=== PATIENT | male | born 1955 | race Caucasian/White ===

== ENCOUNTER → 2016-09-08 | Outpatient (CLI) | payer OTHER ==
--- NOTE | 2016-09-09 10:13 | CARD ---
APPROVED REPORT INDICATION Precordial pain Reason : Patient complained of pain PROCEDURE The patient underwent an Exercise Stress Test using the Noe Protocol. Blood pressure, heart rate, a nd EKG were monitored. An Echocardiogram was performed by tax map technician in four stages in quad fashion. At peak stress four se lected images were obtained and placed side by side with resting images for comparison. STRESS ECHO FINDINGS The resting Echocardiogram showed normal left ventricular contractility with an estimated Ejection Fr action of about 55 %. Stress images were technically very difficult but there appeared to be no obvio us new wall motion abnormalities at peak stress. However, patient did not achieve maximal stress leve l. Test Type: Exercise Stress Nurse/Tech: Erika Carrion R.N. Test Indications: Chest pain Cardiac History and Allergies: SEE EMR Medications: SEE EMR Medical History: SEE EMR Resting ECG: SR with PAC's Resting Heart Rate: 78 bpm Resting Blood Pressure: 154/93mmHg Pretest Chest Pain: None Nurse/Tech Notes SR with pac's, S1S2, lungs CTA, denied chest pain or SOA. Denied dizziness. Consent: The procedure was explained to the patient in lay terms. Informed consent was witnessed. Jose eout was entered into Vouch. History and Stress Test performed by Erika Carrion R.N. Stress Symptoms SOA. Pt describes onset of "cramping pain" pointing to left of mid-clavicular line just below his lef t breast. POST EXERCISE Reason for Termination: Reached target heart rate Target HR: 131 Max HR: 133 bpm 83% of Maximum Predicted HR: 161 bpm Exercise duration: 7:19 min:sec, 3 Stage Exercise capacity: 10.1METs Max Blood Pressure: 192/90mmHg Blood Pressure response to exercise: Normal blood pressure response during stress. Heart Rate response to exercise: Normal Chest Pain: Yes. Describes uncomfortable "cramping" just below L breast. Arrhythmia: Yes. Multiple PAC's, couplets ST Change: Yes. Please see changes in multiple leads, beginning in Stage 3 of excercise and lasting t hrough the recovery phase. INTERPRETATION Stress EKG Conclusion: Baseline EKG showed sinus rhythm. Inferolateral ST depressions and T-wave inve rsions at peak stress concerning for ischemia. PVC is noted without any other significant arrhythmias . <Conclusion> Treadmill exercise stress echocardiogram was equivocal. Stress electrocardiogram showed evidence of ischemia. Stress ultrasound images technically difficult without any obvious wall motion abnormalities at subma ximal stress. Lissette baseline left ventricle systolic function with ejection fraction estimated at 55%. Recommend cardiac catheterization for definitive evaluation.
== END | disposition home or self-care (01) ==
LOC: ECHO 12:55
PROVIDERS: ATTEND Internal Medicine Cardiovascular Disease
DX: R07.2 Precordial pain (principal)
CPT/HCPCS: 93017; 93350

== ENCOUNTER 2016-09-19 06:38 | Outpatient (CLI) | payer OTHER ==
[2016-09-19] VITALS (18 sets, daily range): BP systolic 110–148; BP diastolic 66–89
[~2016-09-19] VITALS: Ht 180.3 cm; Wt 104.3 kg
[~2016-09-19 06:38] MED LIST: CEFAZOLIN 2GM PREMIX 50 ML IV ONE; FENTANYL PF 250 MCG/5 ML VIAL. ONE; MIDAZOLAM HCL/PF 5 MG/5 ML VIAL ONE
[2016-09-19 07:10] LABS: HEMATOCRIT 49.9 % (39.0-53.0); HEMOGLOBIN 16.3 g/dL (13.0-17.5); RED BLOOD COUNT 5.57 x10^6/uL (4.30-5.70); RED CELL DISTRIBUTION WIDTH 13.5 % (11.5-14.5); WHITE BLOOD COUNT 7.4 x10^3/uL (4.0-11.0)
[2016-09-19] MEDS ORDERED: IOHEXOL 300 MG/ML 100ML VIAL. ONE (07:16)
[2016-09-19] MEDS ORDERED: LIDOCAINE 2% 20 ML VIAL. ONE (07:16)
[2016-09-19 07:21] LABS: PROTHROMBIN TIME PATIENT 12.8 SEC (11.7-14.0)
[2016-09-19] MEDS ORDERED: [UNRECOGNIZED DRUG - OTHER] PO (07:21)
[2016-09-19] MEDS ORDERED: OMEG100021 PO (07:21)
[2016-09-19] MEDS ORDERED: LOSA25TA4 PO (07:21)
[2016-09-19] MEDS ORDERED: ACAI500C2 PO (07:21)
[2016-09-19 07:26] LABS: CALCIUM 9.5 mg/dL (8.5-10.1); CREATININE 0.8 mg/dL (0.7-1.3); GFR 98.9; POTASSIUM 4.1 mmol/L (3.5-5.1)
[2016-09-19] MEDS ORDERED: HEPARIN for IV BOLUS 10,000 UNIT/10 ML VIAL. ONE ×2 (08:09→16:01)
[2016-09-19] MEDS ORDERED: MIDAZOLAM HCL 2 MG/2 ML VIAL. ONE ×2 (08:09→08:25)
[2016-09-19] MEDS ORDERED: VERAPAMIL 5 MG/2 ML VIAL. ONE (08:09)
[2016-09-19] MEDS ORDERED: NITROGLYCERIN 200 MCG/2 ML SYRINGE FOR CATH/VASC LAB. ONE (08:09)
[2016-09-19] MEDS ORDERED: FENTANYL PF 100 MCG/2 ML VIAL. ONE (08:09)
[2016-09-19] MEDS ORDERED: NITROGLYCERIN 200 MCG/2 ML SYRINGE FOR CATH/VASC LAB. IART ONE (08:45)
[2016-09-19] MEDS ORDERED: MIDAZOLAM HCL 2 MG/2 ML VIAL. IV ONE (08:45)
[2016-09-19] MEDS ORDERED: IOHEXOL 300 MG/ML 100ML VIAL. IART ONE (08:45)
[2016-09-19] MEDS ORDERED: FENTANYL PF 100 MCG/2 ML VIAL. IV ONE (08:45)
[2016-09-19] MEDS ORDERED: LIDOCAINE 2% 20 ML VIAL. IJ ONE (08:45)
[2016-09-19] MEDS ORDERED: HEPARIN for IV BOLUS 10,000 UNIT/10 ML VIAL. IART ONE (08:45)
[2016-09-19] MEDS ORDERED: VERAPAMIL 5 MG/2 ML VIAL. IART ONE (08:45)
[2016-09-19] MEDS ORDERED: IV 1/2 NORMAL SALINE 1,000 ML IV SCH (09:40)
--- NOTE | 2016-09-19 09:42 | PDOC ---
MODERATE SEDATION ASSESSMENT RISKS/ALTERNATIVES Risks/Alternatives Risks and alternatives of this type of sedation and procedure discussed with: RISK/ALTERNATIVES: Patient H & P ON CHART H & P H & P on chart and reviewed for co-morbid conditions and appropriate labs. H&P ON CHART: Yes STATUS PREG STATUS ASSESSED: N/A MEDS/ALLERGIES REVIEWED Meds/Allergies Reviewed Medications and Allergies including time and route of recently administered narcotics and sedatives. MEDS/ALLERGIES REVIEWED: Yes ASA RATING ASA RATING: II AIRWAY ASSESSMENT Airway Assessment Airway patency, oral function limitations, presence of caps, crowns, dentures, partials, and ability to extend neck assessed. AIRWAY ASSESSMENT: Yes MALLAMPATI SCORE MALLAMPATI SCORE: II PRE-SEDATION ASSESSMENT PRE-SEDATION ASSESSMENT: Yes KATALINA LEDBETTER MD Sep 19, 2016 09:42
--- NOTE | 2016-09-19 12:58 | CARD ---
APPROVED REPORT Procedure(s) performed: Left heart catheterization, selective coronary angiography and left ventricul ography via the right transradial approach INDICATION The indication(s) include : unstable angina . PROCEDURE NARRATIVE After explaining the risks, benefits and alternative options, informed consent was obtained from katrina ent. Patient was brought to the cardiac Jewelry Finisher and right wrist was prepped and draped in the usual fashion after confirming a positive modified Sang's test. Arterial access was obtained in the righ t radial artery and a 6 [place] sheath was inserted. 6 [place] JL 3.5 and 6 [place] JR4 catheters were u sed to perform selective angiography of the left and right coronary arteries after initial attempts t o engage these vessels with 6 [place] Gustavo catheter was unsuccessful. 6 [place] pigtail catheter was used to perform left ventriculography. Patient tolerated the procedure well. Hemostasis was achiev ed using TR band. There were no immediate complications. The following findings were noted. FINDINGS 1. Hemodynamics: Left ventricular end-diastolic pressure of 18 mmHg. No pullback gradient across th e aortic valve. 2. Left ventriculography: Normal left ventricle systolic function with ejection fraction estimated at 60-65%. No significant mitral regurgitation seen. 3. Coronary angiography: a. The left main coronary artery arose from the left sinus of Valsalva, gave rise to the left anteri or descending and left circumflex arteries and did not show any significant stenosis. b. The left anterior descending artery showed 100% chronic total occlusion in the midsegment with di stal reconstitution from left to left collaterals. The diagonal branch showed 40% stenosis in the pro ximal segment. c. The left circumflex artery showed 100% chronic total occlusion in the midsegment. The second and third obtuse marginal branches fill via left to left collaterals. d. The right coronary artery was a large and dominant vessel arising from the right sinus of Valsalv a that showed a calcified 90-95% stenosis in the midsegment. Conclusion 1. Severe three-vessel coronary disease 2. Normal left ventricular systolic function with ejection fraction estimated at 60-65%. Recommendations Cardiothoracic surgery consultation for coronary artery bypass surgery. (Of note, patient is a Religious and does not want any blood products)
[2016-09-19] MEDS ORDERED: HEPARIN for IV BOLUS 10,000 UNIT/10 ML VIAL. IV ONE (15:45)
[2016-09-19] MEDS ORDERED: HEPARIN 25,000UTS/500ML PREMIX 500 ML IV PRN (15:45)
[2016-09-19] MEDS ORDERED: HEPARIN 25,000UTS/500ML PREMIX 500 ML IV ONE (16:01)
== END 2016-09-19 16:35 | disposition short-term general hospital (02) ==
LOC: CCL 06:38
PROVIDERS: ATTEND Internal Medicine Cardiovascular Disease
DX: I25.110 Atherosclerotic heart disease of native coronary artery with unstable angina pectoris (principal); I10 Essential (primary) hypertension; Z87.39 Personal history of other diseases of the musculoskeletal system and connective tissue; Z79.01 Long term (current) use of anticoagulants
CPT/HCPCS: 36415; 80048; 85027; 85610; 85730; 93458; C1769; C1892; J2250; J3010; J3490; Q9967

== ENCOUNTER 2016-12-10 11:30 | Emergency (ER) | payer OTHER ==
[~2016-12-10] VITALS: Ht 182.9 cm; Wt 100.2 kg
[~2016-12-10 11:30] MED LIST changes: -CEFAZOLIN 2GM PREMIX 50 ML IV ONE; -FENTANYL PF 250 MCG/5 ML VIAL. ONE; +LOSA25TA4 PO; -MIDAZOLAM HCL/PF 5 MG/5 ML VIAL ONE; +OMEG100021 PO; +[UNRECOGNIZED DRUG - CODE] PO; +[UNRECOGNIZED DRUG - OTHER] PO
[2016-12-10 11:34] VITALS: BP 159/85
[2016-12-10] MEDS ORDERED: fentaNYL PF VIAL 100 MCG/2 ML VIAL IV ONE (11:45)
[2016-12-10] MEDS ORDERED: IV NORMAL SALINE 1000ML BAG 1,000 ML IV ONE (11:45)
[2016-12-10] MEDS ORDERED: ONDANSETRON ODT 4 MG TAB.RAPDIS. PO ONE (11:45)
[2016-12-10] MEDS ORDERED: KETOROLAC TROMETHAMINE 30 MG/ML INJ. IV ONE (11:45)
--- NOTE | 2016-12-10 12:00 | PHYS DOC ---
Adult General Chief Complaint Chief Complaint: FLANK PAIN HPI HPI Patient is a 60 year old male presenting to the emergency department for evaluation of left flank pain that started around 6:00 this morning and radiates to his left lower abdomen currently and is causing him some nausea and difficulty urinating. He says that this is similar to when he had his kidney stone 4 years ago and he required stenting at that time. Patient says that he took some pain medication at home and feels somewhat better although he still uncomfortable. Patient is in no obvious distress with normal vital signs. Review of Systems Review of Systems Constitutional: Denies fever or chills [] Eyes: Denies change in visual acuity, redness, or eye pain [] HENT: Denies nasal congestion or sore throat [] Respiratory: Denies cough or shortness of breath [] Cardiovascular: No additional information not addressed in HPI [] GI: + abdominal pain, nausea. No vomiting, bloody stools or diarrhea [] : Denies dysuria or hematuria [] Musculoskeletal: + back pain. No joint pain [] Integument: Denies rash or skin lesions [] Neurologic: Denies headache, focal weakness or sensory changes [] Current Medications Current Medications Current Medications Medications (Trade) Dose Ordered Sig/Tiffanie Start Time Stop Time Status Last Admin Dose Admin Fentanyl Citrate (Fentanyl 2ml Vial) 75 mcg 1X ONCE 12/10/16 11:45 12/10/16 11:46 DC 12/10/16 12:14 75 MCG Ketorolac Tromethamine (Toradol) 30 mg 1X ONCE 12/10/16 11:45 12/10/16 11:46 DC 12/10/16 12:12 30 MG Ondansetron HCl (Zofran Odt) 8 mg 1X ONCE 12/10/16 11:45 12/10/16 11:46 DC 12/10/16 12:08 8 MG Sodium Chloride 1,000 ml @ 1,000 mls/hr 1X ONCE 12/10/16 11:45 12/10/16 12:44 DC 12/10/16 12:09 1,000 MLS/HR Allergies Allergies Allergies Coded Allergies Type Severity Reaction Last Updated Verified propoxyphene Allergy Severe 09/19/16 Yes oxycodone Allergy Intermediate Hives 09/19/16 Yes Physical Exam Physical Exam Constitutional: Well developed, well nourished, no acute distress, non-toxic appearance. [] HENT: Normocephalic, atraumatic, bilateral external ears normal, oropharynx moist, no oral exudates, nose normal. [] Eyes: PERRLA, EOMI, conjunctiva normal, no discharge. [] Neck: Normal range of motion, no tenderness, supple, no stridor. [] Cardiovascular:Heart rate regular rhythm, no murmur [] Lungs & Thorax: Bilateral breath sounds clear to auscultation [] Abdomen: Bowel sounds normal, soft, no tenderness, no masses, no pulsatile masses. [] Skin: Warm, dry, no erythema, no rash. [] Back: No tenderness. + L CVA tenderness. [] Extremities: No tenderness, no cyanosis, no clubbing, ROM intact, no edema. [] Neurologic: Alert and oriented X 3, normal motor function, normal sensory function, no focal deficits noted. [] Current Patient Data Vital Signs Vital Signs Date Time Temp Pulse Resp B/P (MAP) Pulse Ox O2 Delivery O2 Flow Rate FiO2 12/10/16 12:14 18 12/10/16 11:34 97.8 59 159/85 (109) 97 Room Air 97.8 Lab Values Laboratory Tests Test 12/10/16 11:57 White Blood Count 12.0 x10^3/uL (4.0-11.0) H Red Blood Count 5.31 x10^6/uL (4.30-5.70) Hemoglobin 15.2 g/dL (13.0-17.5) Hematocrit 47.1 % (39.0-53.0) Mean Corpuscular Volume 89 fL (79-100) Mean Corpuscular Hemoglobin 29 pg (25-35) Mean Corpuscular Hemoglobin Concent 32 g/dL (31-37) Red Cell Distribution Width 14.4 % (11.5-14.5) Platelet Count 211 x10^3/uL (140-400) Neutrophils (%) (Auto) 83 % (31-73) H Lymphocytes (%) (Auto) 11 % (24-48) L Monocytes (%) (Auto) 6 % (0-9) Eosinophils (%) (Auto) 0 % (0-3) Basophils (%) (Auto) 0 % (0-3) Neutrophils # (Auto) 10.0 x10^3uL (1.8-7.7) H Lymphocytes # (Auto) 1.3 x10^3/uL (1.0-4.8) Monocytes # (Auto) 0.8 x10^3/uL (0.0-1.1) Eosinophils # (Auto) 0.0 x10^3/uL (0.0-0.7) Basophils # (Auto) 0.0 x10^3/uL (0.0-0.2) Sodium Level 137 mmol/L (136-145) Potassium Level 4.1 mmol/L (3.5-5.1) Chloride Level 102 mmol/L (98-107) Carbon Dioxide Level 28 mmol/L (21-32) Anion Gap 7 (6-14) Blood Urea Nitrogen 19 mg/dL (8-26) Creatinine 0.9 mg/dL (0.7-1.3) Estimated GFR (Cockcroft-Gault) 86.4 BUN/Creatinine Ratio 21 (6-20) H Glucose Level 139 mg/dL (70-99) H Calcium Level 9.5 mg/dL (8.5-10.1) Total Bilirubin 1.0 mg/dL (0.2-1.0) Aspartate Amino Transferase (AST) 26 U/L (15-37) Alanine Aminotransferase (ALT) 49 U/L (16-63) Alkaline Phosphatase 70 U/L (46-116) Total Protein 7.6 g/dL (6.4-8.2) Albumin 4.0 g/dL (3.4-5.0) Albumin/Globulin Ratio 1.1 (1.0-1.7) Laboratory Tests 12/10/16 11:57 Laboratory Tests 12/10/16 11:57 EKG EKG [] Radiology/Procedures Radiology/Procedures Indication left flank pain. Axial images through the abdomen and pelvis were obtained. The examination was tailored for the detection of renal and/or ureteral calculi. No IV or gastrointestinal contrast was administered. Note is made of a similar exam 06/01/2012. The lung bases are clear. There is some coronary artery calcification There is adenopathy and/or soft tissue swelling in the left groin. An inflammatory process is not excluded. Targeted physical exam advised. The liver and spleen appear unremarkable. The gallbladder is grossly normal. No pancreatic abnormality is seen. There are no adrenal masses. There is a right renal mass likely reflecting a cyst. It appears somewhat larger than on the previous exam. It is not fully characterized on this noncontrast study. Nonemergent ultrasound could be performed for additional evaluation. There is a 2 to 3 mm left renal calculus. There is left hydronephrosis and hydroureter to the level of a 4 to 5 mm calculus impacted at the UVJ. No additional finding is seen in the abdomen or pelvis apart from a slightly enlarged prostate. IMPRESSION: 4 to 5 mm calculus impacted at the left UVJ with associated moderate obstructive uropathy. 2 to 3 mm left intrarenal calculus is additionally noted. Adenopathy and or inflammation in the left groin. Targeted physical exam advised. Mildly enlarged prostate. Probable right renal cyst PQRS Compliance Statement: One or more of the following individualized dose reduction techniques were utilized for this examination: 1. Automated exposure control 2. Adjustment of the mA and/or kV according to patient size 3. Use of iterative reconstruction technique DICTATED and SIGNED BY: ARNOLD WRIGHT MD DATE: 12/10/16 8339 Course & Med Decision Making Course & Med Decision Making Will treat for her kidney stone pain check CT labs urine and reassess. Patient has a stone that is likely to pass and he is feeling much better with no pain or nausea. Patient was agreeable to discharge so he'll be discharged with pain nausea and Flomax. Patient aware and agreeable with plan and verbalized understanding of the need for short-term urology follow-up and strict ER return precautions discussed worsening pain fevers vomiting or other general concerns. Dragon Disclaimer Dragon Disclaimer This electronic medical record was generated, in whole or in part, using a voice recognition dictation system. Departure Departure Impression: Primary Impression: Kidney stone Disposition: HOME, SELF-CARE Condition: GOOD Referrals: MALCOLM GARCIA DO Patient Instructions: Kidney Stones Additional Instructions: TAKE 400MG OF IBUPROFEN EVERY 6 HOURS AND THE PERCOCET FOR BREAKTHROUGH PAIN. DRINK PLENTY OF WATER AND FOLLOW WITH DR. GARCIA. COME BACK TO THE ED SOONER WITH ANY NEW OR WORSENING SYMPTOMS. THANK YOU! Scripts Tamsulosin Hcl (FLOMAX) 0.4 Mg Cap.er.24h 0.4 MG PO DAILY, #7 TAB Prov: JIGNA GALEANA DO 12/10/16 Ondansetron (ZOFRAN ODT) 4 Mg Tab.rapdis 4 MG PO BID Y for NAUSEA/VOMITING, #10 TAB Prov: JIGNA GALEANA DO 12/10/16 Oxycodone/Apap 5-325 (PERCOCET 5-325 MG TABLET) 1 Each Tablet 1 TAB PO PRN Q6HRS Y for PAIN, #20 TAB 0 Refills Prov: JIGNA GALEANA DO 12/10/16 JIGNA GALEANA DO Dec 10, 2016 12:00
[2016-12-10 12:03] LABS: BASO % 0 % (0-3); EOS % 0 % (0-3); HEMATOCRIT 47.1 % (39.0-53.0); HEMOGLOBIN 15.2 g/dL (13.0-17.5); LYMPH # 1.3 x10^3/uL (1.0-4.8); LYMPH % 11 % (24-48); MEAN CORPUSCULAR HEMOGLOBIN 29 pg (25-35); MEAN CORPUSCULAR HGB CONC 32 g/dL (31-37); MEAN CORPUSCULAR VOLUME 89 fL (79-100); MONO % 6 % (0-9); NEUT % 83 % (31-73); PLATELET COUNT 211 x10^3/uL (140-400); RED BLOOD COUNT 5.31 x10^6/uL (4.30-5.70); RED CELL DISTRIBUTION WIDTH 14.4 % (11.5-14.5)
[2016-12-10 12:14] LABS: CALCIUM 9.5 mg/dL (8.5-10.1); CREATININE 0.9 mg/dL (0.7-1.3); GFR 86.4; POTASSIUM 4.1 mmol/L (3.5-5.1)
[2016-12-10 12:20] LABS: ALBUMIN/GLOBULIN RATIO 1.1 (1.0-1.7); TOTAL PROTEIN 7.6 g/dL (6.4-8.2)
--- NOTE | 2016-12-10 12:56 | RAD ---
Indication left flank pain. Axial images through the abdomen and pelvis were obtained. The examination was tailored for the detection of renal and/or ureteral calculi. No IV or gastrointestinal contrast was administered. Note is made of a similar exam 06/01/2012. The lung bases are clear. There is some coronary artery calcification There is adenopathy and/or soft tissue swelling in the left groin. An inflammatory process is not excluded. Targeted physical exam advised. The liver and spleen appear unremarkable. The gallbladder is grossly normal. No pancreatic abnormality is seen. There are no adrenal masses. There is a right renal mass likely reflecting a cyst. It appears somewhat larger than on the previous exam. It is not fully characterized on this noncontrast study. Nonemergent ultrasound could be performed for additional evaluation. There is a 2 to 3 mm left renal calculus. There is left hydronephrosis and hydroureter to the level of a 4 to 5 mm calculus impacted at the UVJ. No additional finding is seen in the abdomen or pelvis apart from a slightly enlarged prostate. IMPRESSION: 4 to 5 mm calculus impacted at the left UVJ with associated moderate obstructive uropathy. 2 to 3 mm left intrarenal calculus is additionally noted. Adenopathy and or inflammation in the left groin. Targeted physical exam advised. Mildly enlarged prostate. Probable right renal cyst PQRS Compliance Statement: One or more of the following individualized dose reduction techniques were utilized for this examination: 1. Automated exposure control 2. Adjustment of the mA and/or kV according to patient size 3. Use of iterative reconstruction technique
[2016-12-10] MEDS ORDERED: ONDA4TAB10 PO (13:16)
[2016-12-10] MEDS ORDERED: TAMS0.4C97 PO (13:16)
[2016-12-10] MEDS ORDERED: OXYC-323 PO (13:16)
[2016-12-10 13:52] LABS: BILIRUBIN,URINE NEGATIVE (NEG); GLUCOSE,URINE NEGATIVE (NEG); NITRITE,URINE NEGATIVE (NEG); PH,URINE 5.5; PROTEIN,URINE NEGATIVE (NEG-TRACE); UROBILINOGEN,URINE 0.2 mg/dL (0.2 mg/dL)
[2016-12-10 14:06] LABS: BACTERIA,URINE 0 /HPF (0-FEW); RBC,URINE >40 /HPF (0-2); WBC,URINE 0 /HPF (0-4)
== END 2016-12-10 14:47 | disposition home or self-care (01) ==
LOC: ER 11:30
DX: N20.0 Calculus of kidney (principal); Z88.8 Allergy status to other drugs, medicaments and biological substances; Z88.5 Allergy status to narcotic agent
CPT/HCPCS: 36415; 74176; 80053; 81001; 85027; 96361; 96374; 96375; 99285; J1885; J3010; J7030; Q0162

== ENCOUNTER → 2019-03-29 | Outpatient (CLI) | payer OTHER ==
[~2019-03-29] MED LIST changes: +ASPI325T8 PO; +ATOR40TA PO; -LOSA25TA4 PO; +LOSA25TA54 PO; +METO50TA4 PO; +ONDA4TAB10 PO; +OXYC1TAB15 PO; +TAMS0.4C97 PO
--- NOTE | 2019-03-29 13:54 | CARD ---
MR#: [id number] Date of Study: 03/29/2019 Ordering Physician: KATALINA LEDBETTER, Referring Physician: KATALINA LEDBETTER Tech: Rosmery Reynoso RDCS APPROVED REPORT EXAM: Two-dimensional and M-mode echocardiogram with Doppler and color Doppler. Other Information Quality : AverageHR: 63bpm Rhythm : NSR INDICATION CAD Surgery/Intervention CABG: Date: 2016 2D DIMENSIONS RVDd3.4 (2.9-3.5cm)Left Atrium(2D)4.4 (1.6-4.0cm) IVSd1.3 (0.7-1.1cm)Aortic Root(2D)3.6 (2.0-3.7cm) LVDd5.2 (3.9-5.9cm)LVOT Diameter2.4 (1.8-2.4cm) PWd1.3 (0.7-1.1cm)LVDs4.0 (2.5-4.0cm) FS (%) 22.3 %SV56.8 ml LVEF(%)45.0 (>50%) M-Mode DIMENSIONS Left Atrium(MM)4.79 (2.5-4.0cm)Aortic Root3.28 (2.2-3.7cm) Aortic Valve AoV Peak Hong.96.5cm/sAoV VTI20.3cm AO Peak GR.3.7mmHgLVOT Peak Hong.76.8cm/s AO Mean GR.2mmHgAVA (VMAX)3.72cm2 GET (VTI)3.50cm2 Mitral Valve MV E Ceuojkaq95.3cm/sMV DECEL [id number] MV A Nhlbmkkb18.4cm/sE/A Ratio1.4 Pulmonary Valve PV Peak Ljmqncfb702.6cm/s Tricuspid Valve TR P. Lucxljvz989ed/sRAP BIDJREBA5suVy TR Peak Gr.35vxAaZJSH62buEi Pulmonary Vein S1 Zsikkmox78.4cm/sD2 Bynsmzve16.7cm/s PVa kdcwwgnd78qudv LEFT VENTRICLE The left ventricle is normal size. There is mild concentric left ventricular hypertrophy. Left ventri asia systolic function is low normal. The Ejection Fraction is 50-55%. Septal motion suggestive of pos t-operative state. Transmitral Doppler flow pattern is Grade II-pseudonormal filling dynamics. RIGHT VENTRICLE The right ventricle is normal size. There is normal right ventricular wall thickness. The right ventr icular systolic function is normal. ATRIA The left atrium is mildly dilated. The right atrium size is normal. The interatrial septum is intact with no evidence for an atrial septal defect or patent foramen ovale as noted on 2-D or Doppler imagi ng. AORTIC VALVE The aortic valve is normal in structure and function. The aortic valve is trileaflet. Doppler and Col or Flow revealed no significant aortic regurgitation. There is no significant aortic valvular stenosi s. There is no aortic valvular vegetation. MITRAL VALVE The mitral valve is normal in structure and function. There is no evidence of mitral valve prolapse. There is no mitral valve stenosis. Doppler and Color-flow revealed mild mitral regurgitation. TRICUSPID VALVE The tricuspid valve is normal in structure and function. Doppler and Color Flow revealed trace tricus pid regurgitation. The PA pressure was estimated at 32 mmHg. There is no tricuspid valve prolapse or vegetation. There is no tricuspid valve stenosis. PULMONIC VALVE The pulmonic valve is not well visualized. GREAT VESSELS The aortic root is normal in size. The ascending aorta is normal in size. The IVC is normal in size a nd collapses >50% with inspiration. PERICARDIAL EFFUSION There is no evidence of significant pericardial effusion. Critical Notification Critical Value: No <Conclusion> Left ventricle systolic function is low normal. The Ejection Fraction is 50-55%. Septal motion suggestive of post-operative state. Signed by : Kenyon Bautista, Electronically Approved : 03/29/2019 10:59:20
--- NOTE | 2019-03-29 14:52 | RAD ---
MR#: [id number] Date of Study: 03/29/2019 Ordering Physician: KATALINA LEDBETTER, Referring Physician: KATALINA LEDBETTER Tech: Daphne Griffiths RVT,ERI APPROVED REPORT Patient Location: OUT-PATIENT Indications Claudication: Risk Factors Cardiac Disease VELOCITY AND DOPPLER WAVEFORM ANALYSIS RIGHT cm/secWaveformSeverity LEFT cm/secWaveform Severity pCFA 142.5TriphasicpCFA 115.7Triphasic Prof Fem Art. 39.8BiphasicProf Fem Art. 50.9Biphasic Fem Art Prox. 104.8TriphasicFem Art Prox. 102.7Triphasic Fem Art Mid. 99.1TriphasicFem Art Mid. 108.5Triphasic Fem Art Dist. 72.3TriphasicFem Art Dist. 60.2Triphasic Pop Art(Fossa) 48.1TriphasicPop Art(AK) 52.6Triphasic PIT AND AUXILIARIES SUPERVISOR Prox. 68.0TriphasicPTA Prox. 95.8Triphasic PIT AND AUXILIARIES SUPERVISOR Dist. 82.6TriphasicPTA Dist. 85.5Triphasic Per Art Dist.37.2TriphasicPer Art Dist.47.9Triphasic SHAW Dist. 32.1BiphasicATA Dist. 75.7Biphasic DPA 17BiphasicDPA 39Triphasic Findings Grayscale images demonstrate mostly triphasic and biphasic waveforms throughout the bilateral lower e xtremity arteries. There is likely small vessel disease at the level of the ankle but no focal high-g rade stenosis is at the modified. There is mild diffuse calcific plaque noted on gallardo scale images. Critical Notification Critical Value: No <Conclusion> 1. No significant lower ext arterial disease with three-vessel runoff below the knee. 2. Probable small vessel disease at the level of the ankle. Signed by : Kenyon Bautista, Electronically Approved : 03/29/2019 14:52:06
== END | disposition home or self-care (01) ==
LOC: US 07:49
PROVIDERS: ATTEND Internal Medicine Cardiovascular Disease
DX: I34.0 Nonrheumatic mitral (valve) insufficiency (principal); I25.810 Atherosclerosis of coronary artery bypass graft(s) without angina pectoris; M79.605 Pain in left leg; M79.604 Pain in right leg; Z95.1 Presence of aortocoronary bypass graft
CPT/HCPCS: 93306; 93925

== ENCOUNTER → 2019-04-02 | Outpatient (CLI) | payer OTHER ==
[~2019-04-02] MED LIST changes: -ASPI325T8 PO; -ATOR40TA PO; -METO50TA4 PO
[2019-04-02 08:41] LABS: BASO % 0 % (0-3); EOS # 0.1 x10^3/uL (0.0-0.7); EOS % 2 % (0-3); HEMATOCRIT 48.9 % (39.0-53.0); HEMOGLOBIN 16.4 g/dL (13.0-17.5); LYMPH # 1.5 x10^3/uL (1.0-4.8); LYMPH % 27 % (24-48); MEAN CORPUSCULAR HEMOGLOBIN 30 pg (25-35); MEAN CORPUSCULAR HGB CONC 34 g/dL (31-37); MEAN CORPUSCULAR VOLUME 90 fL (79-100); MONO # 0.5 x10^3/uL (0.0-1.1); MONO % 9 % (0-9); NEUT # 3.4 x10^3/uL (1.8-7.7); NEUT % 61 % (31-73); PLATELET COUNT 175 x10^3/uL (140-400); RED BLOOD COUNT 5.43 x10^6/uL (4.30-5.70); RED CELL DISTRIBUTION WIDTH 14.3 % (11.5-14.5); WHITE BLOOD COUNT 5.6 x10^3/uL (4.0-11.0)
[2019-04-02 09:05] LABS: ALBUMIN 3.9 g/dL (3.4-5.0); ALBUMIN/GLOBULIN RATIO 1.1 (1.0-1.7); CALCIUM 9.7 mg/dL (8.5-10.1); CREATININE 0.9 mg/dL (0.7-1.3); GFR 85.5; POTASSIUM 4.3 mmol/L (3.5-5.1); TOTAL BILIRUBIN 1.4 mg/dL (0.2-1.0); TOTAL PROTEIN 7.4 g/dL (6.4-8.2)
[2019-04-02 09:07] LABS: CHOLESTEROL/HDL RATIO 3.9
[2019-04-03 00:07] LABS: HEMOGLOBIN A1C 5.8 % (4.8-5.6)
== END | disposition home or self-care (01) ==
LOC: LAB 08:18
PROVIDERS: ATTEND Family Medicine
DX: Z00.00 Encounter for general adult medical examination without abnormal findings (principal); I25.10 Atherosclerotic heart disease of native coronary artery without angina pectoris; N50.0 Atrophy of testis
CPT/HCPCS: 80053; 80061; 82306; 83036; 84402; 84403; 84443; 85025; G0103

== ENCOUNTER → 2019-05-17 | Day surgery (SDC) | payer OTHER ==
[~2019-05-17] MED LIST changes: +ASPI325T8 PO; +ATOR40TA PO; +IV RINGERS,LACTATED 1000ML 1,000 ML IV SCH; +LIDOCAINE 2% PF 5 ML VIAL. ONE; +METO50TA4 PO; +ONDANSETRON PF 4 MG/2 ML VIAL. IV PRN; +PROCHLORPERAZINE 10 MG/2 ML VIAL. IV PRN; +PROPOFOL 40 ML IV ONE; +fentaNYL PF VIAL 100 MCG/2 ML VIAL IV PRN
[2019-05-17 09:02] VITALS: BP 135/80
--- NOTE | 2019-05-20 14:07 | PATHOLOGY ---
[facility] Accession Number: [id number] . 01 Material submitted: . rectum - RECTAL POLYP . 01 Clinical history: . CRCS . 02 Diagnosis: Colorectal biopsy, rectal polyp: - Hyperplastic polyp. (JPM:[facility] 05/20/2019) [facility] 05/20/2019 0939 Local . 02 Comment: There are no adenomatous changes or evidence of malignancy. (JPM:[facility] 05/20/2019) . 02 Electronically signed: . Mario Higgins MD, Pathologist NPI- [id number] . 01 Gross description: . Received in formalin labeled "Julián Arthur, rectal polyp BX," is a single segment of rutledge soft tissue measuring 0.4 cm in maximum dimension. The specimen is entirely submitted in cassette A1. (TSD; 05/17/2019) TOB/TOB 05/17/2019 1657 Local . 02 Pathologist provided ICD-10: K62.1 . 02 CPT . 369469 Specimen Comment: A courtesy copy of this report has been sent to [phone], [phone] Specimen Comment: [id number] Specimen Comment: Report sent to / DR BOLANOS Performed at: 01 [facility] [address], [place] [id number] MD Kvng Sol MD Phone: [phone] Performed at: 02 [facility] [address] [place], [place] [id number] MD Mario Higgins MD Phone: [phone]
== END ==
LOC: ENDOS 06:59
PROVIDERS: ATTEND Internal Medicine Gastroenterology
DX: Z12.11 Encounter for screening for malignant neoplasm of colon (principal); K62.1 Rectal polyp; K64.0 First degree hemorrhoids; I10 Essential (primary) hypertension; I25.10 Atherosclerotic heart disease of native coronary artery without angina pectoris; F41.9 Anxiety disorder, unspecified; F32.9 Major depressive disorder, single episode, unspecified; E66.9 Obesity, unspecified; Z68.30 Body mass index [BMI] 30.0-30.9, adult; Z88.6 Allergy status to analgesic agent; Z88.8 Allergy status to other drugs, medicaments and biological substances; Z72.89 Other problems related to lifestyle; Z79.82 Long term (current) use of aspirin; Z98.890 Other specified postprocedural states; Z95.1 Presence of aortocoronary bypass graft; Z87.442 Personal history of urinary calculi; Z87.39 Personal history of other diseases of the musculoskeletal system and connective tissue
CPT/HCPCS: 45380; 88305; J2001; J2704

== ENCOUNTER → 2020-05-25 | Outpatient (CLI) | payer OTHER ==
[2019-05-17 09:02] VITALS: BP 135/80
[~2020-05-25] MED LIST changes: -IV RINGERS,LACTATED 1000ML 1,000 ML IV SCH; -LIDOCAINE 2% PF 5 ML VIAL. ONE; -ONDANSETRON PF 4 MG/2 ML VIAL. IV PRN; -PROCHLORPERAZINE 10 MG/2 ML VIAL. IV PRN; -PROPOFOL 40 ML IV ONE; +REGADENOSON 0.4 MG/5 ML DISP.SYRIN. IV ONE; -fentaNYL PF VIAL 100 MCG/2 ML VIAL IV PRN
--- NOTE | 2020-05-25 17:22 | RAD ---
MR#: [id number] Date of Study: 05/25/2020 Ordering Physician: KATALINA LEDBETTER, Referring Physician: ASHLEIGH HERNANDEZ Tech: RT Antonette (R) (N) APPROVED REPORT Test Type: Pharmacological Stress Nurse/Tech: Jean Claude Duggan RN Test Indications: CAD, chest pain Cardiac History: CABG 2017, HTN Medications: Zocor Medical History: See Electronic Medical Record Resting ECG: SR Resting Heart Rate: 58 bpm Resting Blood Pressure: 129/79mmHg Pretest Chest Pain: None Nurse/Tech Notes Lungs CTA, S1S2 Consent: The procedure was explained to the patient in lay terms. Informed consent was witnessed. Jose eout was entered into [employer]. History and Stress Test performed by GILBERTO Rivas Pharm. Details Pharmacologic stress testing was performed using 0.4mg per 5ml of regadenoson given intravenously ove r 7-10 seconds. Stress Symptoms No chest pain or symptoms. POST EXERCISE Reason for Termination: Infusion complete Max HR: 82 bpm Max Blood Pressure: 142/84mmHg Blood Pressure response to exercise: Normal blood pressure response during stress. Heart Rate response to exercise: Normal response Chest Pain: No. Arrhythmia: No. ST Change: No. INTERPRETATION Stress EKG Conclusion: The resting EKG shows a sinus rhythm. The stress EKG shows no significant changes from baseline. No EKG evidence of stress-induced ischemia. Imaging Protocol IMAGE PROTOCOL: Rest Tc-99m/stress Tc-99m 1 day Rest: Stress: Viability: Radiopharm.Tc99m FkwehsuqrTr30r Sestamibi Dose10.5mCi 30mCi Duration 13min. 13min. Img Date 05/25/2020 05/25/2020 Inj-Img Yvsl01kdz. 60min. Rest Admin Site:IV - Right AntecubitalAdministrator:RT Antonette (R)(N) Stress Admin Site: IV - Right AntecubitalAdministrator: GILBERTO Rivas STRESS DATA End Diast. Vol.131.0mlLVEDV index BSA58.0ml End Syst. Vol.44.0mlLVESV index BSA19.0ml Myocardial Rlyr995.0gEject. Qpfqesag54.0% Stress Scores Regional WT0.00Summed WT1.00 Regional WM0.00Summed WM5.00 LV Perfusion The stress scans show a mild inferior septal defect. The rest scans showed no significant defects. Nuclear imaging shows a mild area of reversible ischemia in the inferior septal region. Wall Motion Left ventricular systolic function is normal with an ejection fraction of 67%. LV Perf. Quant 17 Seg. SSS11.00 17 Seg. SRS0.00 17 Seg. SDS11.00 Stress Defect Extent (% LAD)23.80Rest Defect Extent (% LAD)0.00Rev. Defect Extent (% LAD)21.90 Stress Defect Extent (% LCX) 0.00Rest Defect Extent (% LCX)0.00Rev. Defect Extent (% LCX)0.00 Stress Defect Extent (% RCA)18.90Rest Defect Extent (% RCA)0.00Rev. Defect Extent (% RCA)18.90 Stress Defect Extent (% JOSE)20.70Rest Defect Extent (% JOSE)0.00Rev. Defect Extent (% JOSE)19.80 Conclusion 1. No EKG evidence of stress-induced ischemia. 2. Nuclear imaging show a mild area of reversible ischemia in the inferior septal region. 3. Left ventricular systolic function is normal with an ejection fraction of 67%. 4. Moderate risk Lexiscan stress test showing a mild area of reversible ischemia in the inferior sept al region and normal LV systolic function in a bypass patient. Signed by : Kali Reed MD Electronically Approved : 05/25/2020 17:22:25
--- NOTE | 2020-05-25 17:37 | CARD ---
MR#: [id number] Date of Study: 05/25/2020 Ordering Physician: KATALINA LEDBETTER, Referring Physician: KATALINA LEDBETTER, Tech: Марина Shipman APPROVED REPORT EXAM: Two-dimensional and M-mode echocardiogram with Doppler and color Doppler. Other Information Quality : FairHR: 61bpm INDICATION Cardiac Disease: CAD Surgery/Intervention CABG: Date: 2016 x3 RISK FACTORS Hypertension Hyperlipidemia 2D DIMENSIONS Left Atrium(2D)3.9 (1.6-4.0cm)IVSd1.2 (0.7-1.1cm) Aortic Root(2D)3.7 (2.0-3.7cm)LVDd5.1 (3.9-5.9cm) PWd1.2 (0.7-1.1cm)IVSs4.0 (0.8-1.2cm) LVDs2.3 (2.5-4.0cm)FS (%) 53.7 % SV95.8 ml Aortic Valve AoV Peak Hong.112.7cm/sAoV VTI21.9cm AO Peak GR.5.1mmHgLVOT Peak Hong.98.8cm/s LVOT VTI 22.70cmAO Mean GR.3mmHg Mitral Valve MV E Ulwngqax49.2cm/sMV DECEL BSOA754mg MV A Lppalfoa32.9cm/sMV LXJ90zi E/A Ratio1.4MVA (PHT)3.81cm2 TDI E/Lateral E'6.2E/Medial E'8.8 Pulmonary Valve PV Peak Qjwrstuq929.7cm/sPV Peak Grad.4mmHg Tricuspid Valve TR P. Htqzssow078ed/sRAP WBWNAIYG8azGd TR Peak Gr.88slYnMFDA14doMb Pulmonary Vein S1 Lgeorgfc94.3cm/sD2 Hkkoiqrj46.8cm/s PVa frmhdoec462ziaz LEFT VENTRICLE The left ventricle is normal size. There is borderline to mild concentric left ventricular hypertroph y. The left ventricular systolic function is normal and the ejection fraction is within normal range. The Ejection Fraction is 50-55%. There is normal LV segmental wall motion. Transmitral Doppler flow pattern is Grade II-pseudonormal filling dynamics. RIGHT VENTRICLE The right ventricle is normal size. There is normal right ventricular wall thickness. The right ventr icular systolic function is normal. ATRIA The left atrium is borderline dilated. The right atrium size is normal. The interatrial septum is int act with no evidence for an atrial septal defect or patent foramen ovale as noted on 2-D or Doppler i maging. AORTIC VALVE The aortic valve is normal in structure and function. Doppler and Color Flow revealed no significant aortic regurgitation. There is no significant aortic valvular stenosis. Calculated aortic valve area is 3.57 cm2 with maximum pressure gradient of 6 mmHg and mean pressure gradient of 3 mmHg. MITRAL VALVE The mitral valve is normal in structure and function. There is no evidence of mitral valve prolapse. There is no mitral valve stenosis. Doppler and Color Flow revealed no mitral valve regurgitation note d. TRICUSPID VALVE The tricuspid valve is normal in structure and function. Doppler and Color Flow revealed trace tricus pid regurgitation with an estimated PAP of 27 mmHg. There is no tricuspid valve stenosis. PULMONIC VALVE The pulmonary valve is normal in structure and function. Doppler and Color Flow revealed trace pulmon ic valvular regurgitation. GREAT VESSELS The aortic root is normal in size. The ascending aorta is normal in size. The IVC is normal in size a nd collapses >50% with inspiration. PERICARDIAL EFFUSION There is no evidence of significant pericardial effusion. Critical Notification Critical Value: No <Conclusion> The left ventricle is normal size. The left ventricular systolic function is normal and the ejection fraction is within normal range. The Ejection Fraction is 50-55%. There is borderline to mild concentric left ventricular hypertrophy. Doppler and Color Flow revealed no significant aortic regurgitation. There is no significant aortic valvular stenosis. Doppler and Color Flow revealed no mitral valve regurgitation noted. Doppler and Color Flow revealed trace tricuspid regurgitation with an estimated PAP of 27 mmHg. Signed by : Kali Reed MD Electronically Approved : 05/25/2020 17:36:59
== END ==
LOC: NM 09:00
PROVIDERS: ATTEND Internal Medicine Cardiovascular Disease
DX: I11.9 Hypertensive heart disease without heart failure (principal); I25.10 Atherosclerotic heart disease of native coronary artery without angina pectoris
CPT/HCPCS: 78452; 93017; 93306; A9500; J2785

== ENCOUNTER → 2020-06-30 | Outpatient (CLI) | payer OTHER ==
[2019-05-17 09:02] VITALS: BP 135/80
[~2020-06-30] MED LIST changes: +ASPI-630 PO; +BIOF1TAB7 PO; +CIDE500T PO; +ISOS30TA4 PO; -REGADENOSON 0.4 MG/5 ML DISP.SYRIN. IV ONE; +ZINC50TA39 PO
== END ==
LOC: LAB 11:53
PROVIDERS: ATTEND Internal Medicine Cardiovascular Disease
DX: Z01.812 Encounter for preprocedural laboratory examination (principal); R07.9 Chest pain, unspecified; Z20.828 Contact with and (suspected) exposure to other viral communicable diseases
CPT/HCPCS: U0003

== ENCOUNTER 2020-07-02 09:35 | Outpatient (CLI) | payer OTHER ==
[2020-07-02] VITALS (12 sets, daily range): BP systolic 109–144; BP diastolic 70–89
[~2020-07-02] VITALS: Ht 182.9 cm; Wt 102.1 kg
[~2020-07-02 09:35] MED LIST changes: -ASPI-630 PO; -BIOF1TAB7 PO; -CIDE500T PO; -ISOS30TA4 PO; -ZINC50TA39 PO
[2020-07-02] MEDS ORDERED: CIDE500T PO (09:58)
[2020-07-02] MEDS ORDERED: ASPI-630 PO (09:58)
[2020-07-02] MEDS ORDERED: BIOF1TAB7 PO (09:58)
[2020-07-02] MEDS ORDERED: [UNRECOGNIZED DRUG - CODE] PO (09:58)
[2020-07-02] MEDS ORDERED: ZINC50TA39 PO (09:58)
[2020-07-02] MEDS ORDERED: MIDAZOLAM HCL/PF 5 MG/5 ML VIAL. ONE (10:07)
[2020-07-02] MEDS ORDERED: fentaNYL PF VIAL 100 MCG/2 ML VIAL ONE (10:07)
[2020-07-02] MEDS ORDERED: HEPARIN for IV BOLUS 10,000 UNIT/10 ML VIAL. ONE (10:08)
[2020-07-02] MEDS ORDERED: VERAPAMIL 5 MG/2 ML VIAL. ONE (10:08)
[2020-07-02] MEDS ORDERED: IODIXANOL 320 MG/ML 100 ML VIAL. ONE ×3 (10:08→11:45)
[2020-07-02] MEDS ORDERED: LIDOCAINE 1% PF 2 ML VIAL. ONE (10:08)
[2020-07-02] MEDS ORDERED: NITROGLYCERIN 200 MCG/2 ML SYRINGE FOR CATH/VASC LAB. ONE (10:08)
[2020-07-02 10:15] LABS: HEMATOCRIT 48.4 % (39.0-53.0); RED BLOOD COUNT 5.46 x10^6/uL (4.30-5.70); RED CELL DISTRIBUTION WIDTH 13.8 % (11.5-14.5); WHITE BLOOD COUNT 5.5 x10^3/uL (4.0-11.0)
[2020-07-02] MEDS ORDERED: LIDOCAINE 1% PF 2 ML VIAL. INJ ONE (10:15)
[2020-07-02] MEDS ORDERED: IODIXANOL 320 MG/ML 100 ML VIAL. IART ONE (10:15)
[2020-07-02] MEDS ORDERED: MIDAZOLAM HCL/PF 5 MG/5 ML VIAL. IV ONE (10:15)
[2020-07-02] MEDS ORDERED: fentaNYL PF VIAL 100 MCG/2 ML VIAL IV ONE (10:15)
[2020-07-02] MEDS ORDERED: VERAPAMIL 5 MG/2 ML VIAL. IART ONE (10:15)
[2020-07-02] MEDS ORDERED: NITROGLYCERIN 200 MCG/2 ML SYRINGE FOR CATH/VASC LAB. IART ONE (10:15)
[2020-07-02] MEDS ORDERED: HEPARIN for IV BOLUS 10,000 UNIT/10 ML VIAL. IART ONE (10:15)
[2020-07-02 10:19] LABS: CALCIUM 9.5 mg/dL (8.5-10.1); GFR 75.5
[2020-07-02 10:23] LABS: PROTHROMBIN TIME PATIENT 11.6 SEC (11.7-14.0)
--- NOTE | 2020-07-02 12:20 | PDOC ---
MODERATE SEDATION ASSESSMENT RISKS/ALTERNATIVES Risks/Alternatives Risks and alternatives of this type of sedation and procedure discussed with: RISK/ALTERNATIVES: Patient H & P ON CHART H & P H & P on chart and reviewed for co-morbid conditions and appropriate labs. H&P ON CHART: Yes STATUS PREG STATUS ASSESSED: N/A MEDS/ALLERGIES REVIEWED Meds/Allergies Reviewed Medications and Allergies including time and route of recently administered narcotics and sedatives. MEDS/ALLERGIES REVIEWED: Yes ASA RATING ASA RATING: III AIRWAY ASSESSMENT Airway Assessment Airway patency, oral function limitations, presence of caps, crowns, dentures, partials, and ability to extend neck assessed. AIRWAY ASSESSMENT: Yes MALLAMPATI SCORE MALLAMPATI SCORE: II PRE-SEDATION ASSESSMENT PRE-SEDATION ASSESSMENT: Yes KATALINA LEDBETTER MD Jul 02, 2020 12:20
[2020-07-02] MEDS ORDERED: IV 1/2 NORMAL SALINE 1,000 ML IV SCH (12:30)
[2020-07-02] MEDS ORDERED: ISOS30TA68 PO (12:44)
--- NOTE | 2020-07-02 12:59 | CARD ---
MR#: [id number] Date of Study: 07/02/2020 Ordering Physician: KATALINA ESPINOZA, Referring Physician: KATALINA ESPINOZA, Tech: RT Cricket (R) APPROVED REPORT Technologist: RT Cricket (R) CHERELLE Nurse: Martha Wilson R.N. Procedure(s) performed: Left heart catheterization, selective coronary angiography and selective meena ography of the bypass grafts FLUORO TIME:13.6MIN DOSE: 154 GYCM2 MOD SED: 57 MIN CONTRAST: 222 MIN BLOOD LOSS: <5 ml INDICATION The indication(s) include : unstable angina . CSHA Clinical Frailty Scale CS Clinical Frailty Scale: Managing Well Heart Failure Heart Failure: No PROCEDURE NARRATIVE After explaining the risk, benefits and alternative options, informed consent was obtained for patien t. Patient was brought to the cardiac Credit Collections Rep and his left wrist was prepped and draped in the usua l fashion after confirming a positive modified Sang's test. Arterial access was obtained in the lef t radial artery and a 6 Kyrgyz sheath was inserted. 6 [place]yr[place]z JR4 catheter was used to perform select guillermina angiography of the left internal mammary artery graft to the diagonal branch and also the [place] right coronary artery. 6 [place] JL4 catheter was used to perform selective angiography of the left c oronary artery. 6 [place]yr[place] multipurpose catheter was used to perform selective angiography of the saph enous vein graft to the posterior descending branch of right coronary artery. 6 [place] LCB catheter was used to perform selective angiography of the saphenous vein graft to OM/LCx. LVEDP and transaort ic gradients were measured. Left ventriculography was not performed since recent 2D echo showed norm al LV systolic function. Patient tolerated procedure well. Hemostasis was achieved using TR band. There were no immediate complications. FINDINGS 1. Hemodynamics: Left ventricular end-diastolic pressure 15 mmHg. No pullback gradient across aorti c valve. 2. Coronary and bypass graft angiography: a. The left main coronary artery arose from the left sinus of Valsalva, gave rise to the left anteri or descending and left circumflex arteries and did not show any significant stenosis. b. The left antidescending artery showed 100% chronic total occlusion involving the mid segment. c. The left circumflex artery showed 100% chronic total occlusion involving the mid segment. d. The right coronary artery was a dominant vessel arising from the right sinus of Valsalva that titus wed long heavily calcified 90 to 95% stenosis in the midsegment. e. The left internal mammary artery graft to a large diagonal branch was widely patent. The left an terior descending artery which is a medium caliber vessel reconstitutes via left to left collaterals. f. The saphenous vein graft to the second obtuse marginal branch was widely patent. The third obtus e marginal branch fills well with retrograde flow. g. The saphenous vein graft to the posterior descending branch of right coronary artery is 100% occl uded proximally. Conclusion Severe [place] vessel coronary disease as described above with patent GANNON to diagonal branch, patent SVG to second obtuse marginal branch and occluded SVG to PDA. Recommendations Since patient has significant heavily calcified right coronary artery stenosis, we will plan for rota tional atherectomy/PCI/stent placement with support from temporary transvenous pacemaker in 1 to 2 we eks. Signed by : Katalina Espinoza, Electronically Approved : 07/02/2020 12:59:08
--- NOTE | 2020-07-02 14:49 | NUR ---
pt A&O x4. denies any pain,dizziness or nausea. tolerating po well. VSS. ambulated to BR w/o problem. left radial site- tr band removed- site cleaned- no bleeding-dry dressing applied - retaped armboard to the pt palm and wrist as he was concerned that he would use hand if taped to back of hand. d/c instructions given. questions answered. called in his new prescription for Imdur 30mg ER to his pharmacy at [facility] [place]. Dr. Espinoza's office will call him next week to schedule his followup planned PCI. out to vehicle per w/c- pt's to take him home.
[2020-07-03] MEDS ORDERED: ISOSORBIDE MONONITRATE ER 30 MG TAB.ER.24H PO SCH (09:00)
== END 2020-07-02 14:57 | disposition home or self-care (01) ==
LOC: CCL 09:35
PROVIDERS: ATTEND Internal Medicine Cardiovascular Disease
DX: I25.110 Atherosclerotic heart disease of native coronary artery with unstable angina pectoris (principal); Z88.8 Allergy status to other drugs, medicaments and biological substances; Z95.1 Presence of aortocoronary bypass graft; Z79.899 Other long term (current) drug therapy
CPT/HCPCS: 36415; 75710; 80048; 85027; 85610; 93459; 99152; 99153; C1769; C1892; J1644; J2250; J3010; J3490; Q9967

== ENCOUNTER → 2020-07-10 | Outpatient (CLI) | payer OTHER ==
[2020-07-02 14:30] VITALS: BP 109/72
[~2020-07-10] MED LIST changes: +ASPI-630 PO; +ASPI325T11 PO; +BIOF1TAB7 PO; +CIDE500T PO; +CLOP75TA PO; +ISOS30TA68 PO; +ZINC50TA39 PO
== END ==
LOC: LAB 11:41
PROVIDERS: ATTEND Internal Medicine Cardiovascular Disease
DX: Z01.812 Encounter for preprocedural laboratory examination (principal); I25.110 Atherosclerotic heart disease of native coronary artery with unstable angina pectoris; Z20.822 Contact with and (suspected) exposure to COVID-19
CPT/HCPCS: U0003

== ENCOUNTER 2020-07-13 06:57 | Observation (INO) | payer OTHER ==
[~2020-07-13] VITALS: Ht 182.9 cm; Wt 106.6 kg
[2020-07-13] VITALS (9 sets, daily range): BP systolic 124–157; BP diastolic 67–86
[~2020-07-13 06:57] MED LIST changes: -ASPI325T11 PO; -CLOP75TA PO; +ISOS30TA4 PO; -ISOS30TA68 PO
[2020-07-13 07:30] LABS: RED BLOOD COUNT 5.31 x10^6/uL (4.30-5.70); WHITE BLOOD COUNT 6.3 x10^3/uL (4.0-11.0)
[2020-07-13 07:31] LABS: HEMATOCRIT 47.5 % (39.0-53.0); HEMOGLOBIN 15.9 g/dL (13.0-17.5); RED CELL DISTRIBUTION WIDTH 13.6 % (11.5-14.5)
[2020-07-13 07:37] LABS: CALCIUM 9.4 mg/dL (8.5-10.1); CREATININE 0.9 mg/dL (0.7-1.3); GFR 85.2; POTASSIUM 4.3 mmol/L (3.5-5.1)
[2020-07-13 07:47] LABS: PROTHROMBIN TIME PATIENT 12.3 SEC (11.7-14.0)
[2020-07-13] MEDS ORDERED: IODIXANOL 320 MG/ML 100 ML VIAL. ONE (07:52)
[2020-07-13] MEDS ORDERED: LIDOCAINE 1% Multi-Dose 20 ML VIAL. ONE (07:52)
[2020-07-13] MEDS ORDERED: fentaNYL PF VIAL 100 MCG/2 ML VIAL ONE ×2 (08:20→09:37)
[2020-07-13] MEDS ORDERED: MIDAZOLAM HCL/PF 2 MG/2 ML VIAL. ONE ×2 (08:20→09:23)
[2020-07-13] MEDS ORDERED: BIVALIRUDIN 250 MG VIAL. IV ONE ×2 (09:03→10:00)
[2020-07-13] MEDS ORDERED: NITROGLYCERIN 200 MCG/2 ML SYRINGE FOR CATH/VASC LAB. ONE ×2 (09:40→09:58)
[2020-07-13] MEDS ORDERED: LIDOCAINE 1% Multi-Dose 20 ML VIAL. INJ ONE (10:00)
[2020-07-13] MEDS ORDERED: ASPIRIN 325 MG TABLET PO ONE (10:00)
[2020-07-13] MEDS ORDERED: MIDAZOLAM HCL/PF 2 MG/2 ML VIAL. IV ONE (10:00)
[2020-07-13] MEDS ORDERED: CLOPIDOGREL BISULFATE 75 MG TABLET PO ONE (10:00)
[2020-07-13] MEDS ORDERED: fentaNYL PF VIAL 100 MCG/2 ML VIAL IV ONE (10:00)
[2020-07-13] MEDS ORDERED: IODIXANOL 320 MG/ML 100 ML VIAL. IART ONE (10:00)
[2020-07-13] MEDS ORDERED: NITROGLYCERIN 200 MCG/2 ML SYRINGE FOR CATH/VASC LAB. IART ONE (10:00)
[2020-07-13] MEDS ORDERED: CLOPIDOGREL BISULFATE 75 MG TABLET ONE (10:02)
--- NOTE | 2020-07-13 10:24 | PDOC ---
MODERATE SEDATION ASSESSMENT RISKS/ALTERNATIVES Risks/Alternatives Risks and alternatives of this type of sedation and procedure discussed with: RISK/ALTERNATIVES: Patient H & P ON CHART H & P H & P on chart and reviewed for co-morbid conditions and appropriate labs. H&P ON CHART: Yes STATUS PREG STATUS ASSESSED: N/A MEDS/ALLERGIES REVIEWED Meds/Allergies Reviewed Medications and Allergies including time and route of recently administered narcotics and sedatives. MEDS/ALLERGIES REVIEWED: Yes ASA RATING ASA RATING: III AIRWAY ASSESSMENT Airway Assessment Airway patency, oral function limitations, presence of caps, crowns, dentures, partials, and ability to extend neck assessed. AIRWAY ASSESSMENT: Yes MALLAMPATI SCORE MALLAMPATI SCORE: II PRE-SEDATION ASSESSMENT PRE-SEDATION ASSESSMENT: Yes KATALINA LEDBETTER MD Jul 13, 2020 10:24
[2020-07-13] MEDS ORDERED: NITROGLYCERIN SUBLINGUAL 0.4 MG BOTTLE OF 25. SL PRN (10:30)
[2020-07-13] MEDS ORDERED: IV 1/2 NORMAL SALINE 1,000 ML IV SCH (10:30)
[2020-07-13] MEDS ORDERED: ACETAMINOPHEN 325 MG TABLET. PO PRN (10:30)
--- NOTE | 2020-07-13 10:37 | PDOC4 ---
BRIEF OPERATIVE NOTE Pre-Op Diagnosis Unstable angina, CAD Post-Op Diagnosis Unstable angina, 95% calcified stenosis of RCA Procedure Performed Atherectomy, PCI/JAG to RCA with temp transvenous pacer support Surgeon Dr. Espinoza EBL 10 ml Anesthesia Type: Local, Conscious Sedation Specimens Obtained None Findings N/A Complications None KATALINA ESPINOZA MD Jul 13, 2020 10:37
--- NOTE | 2020-07-13 11:32 | NUR ---
report called to Marianna Summers. Pt transferred to room 206 via bed.
--- NOTE | 2020-07-13 19:25 | NUR ---
pt in bed assessment completed pt denied pain vss poc explained dannielle resume care and continue to monitor pt.
[2020-07-13] MEDS: METOPROLOL SUCC 24HR ER 25 MG TAB.ER.24H. PO SCH (20:47)
[2020-07-13] MEDS ORDERED: ATORVASTATIN CALCIUM 40 MG TABLET. PO SCH (21:00)
[2020-07-13] MEDS ORDERED: diphenhydrAMINE HCL 25 MG CAPSULE PO PRN (22:15)
[2020-07-14 03:05] VITALS: BP 139/84
[2020-07-14 07:00] VITALS: BP 133/72
[2020-07-14] MEDS ORDERED: CLOPIDOGREL BISULFATE 75 MG TABLET PO SCH (08:00)
[2020-07-14] MEDS ORDERED: ASPIRIN ENTERIC COATED 325 MG TABLET.DR. PO SCH (08:00)
[2020-07-14] MEDS: METOPROLOL SUCC 24HR ER 25 MG TAB.ER.24H. PO SCH (08:23)
[2020-07-14] MEDS ORDERED: ISOSORBIDE MONONITRATE ER 30 MG TAB.ER.24H PO SCH (09:00)
--- NOTE | 2020-07-14 09:22 | PDOC3 ---
FANNY HUNT CAN HANDLER 07/14/20 0922: Discharge Summary Visit Information Date of Admission: Jul 13, 2020 Date of Discharge: Jul 14, 2020 Admitting Diagnosis: Unstable angina, CAD Admitting Diagnosis Comment: Unstable angina, CAD, S/P PCI/JAG to RCA Brief Hospital Course Allergies Allergies Coded Allergies Type Severity Reaction Last Updated Verified propoxyphene Allergy Severe 05/17/19 Yes acetaminophen Allergy Intermediate tinnitus 05/17/19 Yes hydrocodone Allergy Intermediate tinnitus 05/17/19 Yes oxycodone Allergy Intermediate Hives 05/17/19 Yes Vital Signs Vital Signs Date Time Temp Pulse Resp B/P (MAP) Pulse Ox O2 Delivery O2 Flow Rate FiO2 07/14/20 08:24 54 133/72 07/14/20 07:00 97.8 18 96 Room Air 97.8 07/13/20 10:30 95.0 Lab Results Laboratory Tests Test 07/13/20 07:20 White Blood Count 6.3 x10^3/uL (4.0-11.0) Red Blood Count 5.31 x10^6/uL (4.30-5.70) Hemoglobin 15.9 g/dL (13.0-17.5) Hematocrit 47.5 % (39.0-53.0) Mean Corpuscular Volume 90 fL (79-100) Mean Corpuscular Hemoglobin 30 pg (25-35) Mean Corpuscular Hemoglobin Concent 33 g/dL (31-37) Red Cell Distribution Width 13.6 % (11.5-14.5) Platelet Count 192 x10^3/uL (140-400) Prothrombin Time 12.3 SEC (11.7-14.0) Prothromb Time International Ratio 1.0 (0.8-1.1) Sodium Level 141 mmol/L (136-145) Potassium Level 4.3 mmol/L (3.5-5.1) Chloride Level 105 mmol/L (98-107) Carbon Dioxide Level 26 mmol/L (21-32) Anion Gap 10 (6-14) Blood Urea Nitrogen 23 mg/dL (8-26) Creatinine 0.9 mg/dL (0.7-1.3) Estimated GFR (Cockcroft-Gault) 85.2 Glucose Level 110 mg/dL (70-99) Calcium Level 9.4 mg/dL (8.5-10.1) Brief Hospital Course Mr. Arthur is a 64 yo male admitted for planned PCI. He has hx of CABG in the past and has been having chest pain recently and was not getting any better consistent with unstable angina. He then had LHC in 07/02/2020 and noted patent GANNON to diagonal branch, patent SVG to OM, occluded SVG to RCA and heavily calcified 95% stenosis involving the mid segment of [place] right coronary artery. He presented today for atherectomy/PCI/stent placement to his right coronary artery with backup support from a temporary transvenous pacemaker wire. His procedure was successful and tolerated it well. No significant bradycardia issues post op and right groin arteriotomy site intact with no hematoma, erythema or swelling. Neurovascular status to bilateral LE intact. Denies any chest pain or SOA and ambulatory without difficulty. AOx3, no significant ectopies maintaining SR. He is to continue his home meds and will sent Rx for plavix and will need full dose of ASA for a month then 81 mg thereafter. Discussed that dressing to right groin can be taken off tomorrow and post op DC instructions reviewed. Discharge Information Condition at Discharge: Stable Follow Up: Weeks (4) Disposition/Orders: D/C to Home Scheduled Aspirin (Aspirin Ec) 325 Mg Tablet.dr, 1 TAB PO DAILY for CAD for 30 Days, #30 Ref 0 Prescribed by: FANNY HUNT on 07/14/20 0926 Atorvastatin Calcium (Lipitor) 40 Mg Tablet, 40 MG PO HS for FOR CHOLESTEROL, #30 Ref 0 (Reported) Entered as Reported by: HAWA CARL on 05/17/19 0724 Last Action: Continued on 07/13/20 1720 by Sunday Pastrana Bioflav,Lemon/Vit Bcomp&C (Lipo-Flavonoid Plus Caplet) 1 Each Tablet, 1 TAB PO DAILY for for 30 Days, #30 Ref 0 (Reported) Entered as Reported by: ISAIAS HEAD on 07/02/20 0958 Clopidogrel Bisulfate (Clopidogrel) 75 Mg Tablet, 1 TAB PO DAILY for CAD for 30 Days, #30 Ref 6 Prescribed by: FANNY HUNT on 07/14/20 0926 Isosorbide Mononitrate (Isosorbide Mononitrate Er) 30 Mg Tab.er.24h, 1 TAB PO DAILY for rx, #30 Ref 5 (Reported) Entered as Reported by: EDWINA MORRIS on 07/02/20 1244 Last Action: Continued on 07/13/201719 by Sunday Pastrana Metoprolol Succinate (Toprol XL) 50 Mg Tab.er.24h, 25 MG PO BID for FOR HYPERTENSION, (Reported) Entered as Reported by: HAWA CARL on 05/17/19 0724 Last Action: Continued on 07/13/20 172 by Sunday Pastrana Huggins-3/Dha/Epa/Fish Oil (Fish Oil 1,000 mg Softgel) 1,000 Mg Capsule, 2,000 MG PO DAILY, (Reported) Entered as Reported by: ISAIAS HEAD on 09/19/16 0721 Zinc (Zinc) 50 Mg Tablet, 1 TAB PO DAILY for for 30 Days, #30 Ref 0 (Reported) Entered as Reported by: ISAIAS HEAD on 07/02/20 09 Discontinued Medications Acai Agosto Extract (Acai Agosto) 500 Mg Capsule, 500 MG PO DAILY for , (Reported) Entered as Reported by: ISAIAS HEAD on 07/02/20 09 Aspirin (Aspirin) 81 Mg Tab.chew, 1 TAB PO DAILY for , #90 Ref 3 (Reported) Entered as Reported by: ISAIAS HEAD on 07/02/20957 Cider Vinegar (Apple Cider Vinegar) 500 Mg Tablet, 500 MG PO DAILY for , (Reported) Entered as Reported by: ISAIAS HEAD on 07/02/20957 Patient Instructions Patient Instructions GENERAL INSTRUCTIONS: 1. Your dressing should be removed prior to leaving the hospital. 2. It is OK to shower the day after your procedure. 3. If you received stents, be sure to carry your stent information card with you in your wallet/purse at all times. 4. Call the office immediately at [phone] if you notice any fever or if there is redness, worsening tenderness/pain, increased bruising, or drainage from the puncture site. 5. Should you have bleeding from the site, lie down immediately & put pressure on the site. The pressure should be hard enough to stop the bleeding. Have the nearest person call 911. DO NOT try to drive to the ER with active bleeding. 6. If you notice a change in color, coolness to touch, or loss of feeling in the affected extremity, come to the emergency room. Please have someone drive you or call 911 if no one is available. DO NOT drive yourself. 7. If you normally take glucophage (metformin), please do not take this medicine for 48 hours following your procedure. 8. DO NOT STOP TAKING YOUR PLAVIX OR ASPIRIN UNLESS IT IS CLEARED BY A JOY OPERATOR HELPER OF YOUR AIRCRAFT PART ASSEMBLER AT OUR OFFICE. 9. QUIT SMOKING: the [place] [employer], [place] [employer], & [place] [employer] have cessation resources available on their websites 10. Please have someone available to drive you home from the hospital as you may be limited by sedation medications given during the procedure. Femoral (Groin) access: 1. Do no lifting, pushing, pulling, bending, stooping, or recurrent stair climbing for 3 days following your procedure. 2. Once past the first 3 days, do not do any HEAVY exertion or lifting for one week following the procedure. No gym workouts, running, lifting greater than a gallon of milk, etc 3. Do not submerge in bath or pool for one week. OK to drive 3 days following your procedure, but if going long distance, do not go alone & take hourly breaks to get out of car and walk around. Radial Artery (Wrist) access: 1. No pushing, pulling, lifting, typing, or anything that requires repetitive use/movement of the affected wrist for 3 days following your procedure. 2. OK to drive the day following your procedure. (This is because of effects of sedating medications.) Call the office at [phone] for any questions or concerns. Justicifation of Admission Dx: Justifications for Admission: Justification of Admission Dx: Yes KATALINA LEDBETTER MD 07/14/20 6744: Discharge Summary Brief Hospital Course Brief Hospital Course Patient seen and examined. Agree with IMMERSION METALCLEANER's assessment and plan. s/p orbital atherectomy/PCI/stent to RCA yesterday, chest pain free. Tele did not show any significant arrhythmias, Groin access site good, Continue DAPT. DC home and follow up as scheduled, Discharge Information Scheduled Aspirin (Aspirin Ec) 325 Mg Tablet., 1 TAB PO DAILY for CAD for 30 Days, #30 Ref 0 Prescribed by: FANNY HUNT on 07/14/20 6242 Atorvastatin Calcium (Lipitor) 40 Mg Tablet, 40 MG PO HS for FOR CHOLESTEROL, #30 Ref 0 (Reported) Entered as Reported by: HAWA CRAL on 05/17/19723 Last Action: Continued on 07/13/201719 by Sunday Pastrana Bioflav,Lemon/Vit Bcomp&C (Lipo-Flavonoid Plus Caplet) 1 Each Tablet, 1 TAB PO DAILY for for 30 Days, #30 Ref 0 (Reported) Entered as Reported by: ISAIAS HEAD on 07/02/20 0958 Clopidogrel Bisulfate (Clopidogrel) 75 Mg Tablet, 1 TAB PO DAILY for CAD for 30 Days, #30 Ref 6 Prescribed by: FANNY HUNT on 07/14/20 0926 Isosorbide Mononitrate (Isosorbide Mononitrate Er) 30 Mg Tab.er.24h, 1 TAB PO DAILY for rx, #30 Ref 5 (Reported) Entered as Reported by: EDWINA MORRIS on 07/02/20 1244 Last Action: Continued on 07/13/201719 by Sunday Pastrana Metoprolol Succinate (Toprol XL) 50 Mg Tab.er.24h, 25 MG PO BID for FOR HYPERTENSION, (Reported) Entered as Reported by: HAWA CARL on 05/17/19723 Last Action: Continued on 07/13/201719 by Sunday Pastrana Huggins-3/Dha/Epa/Fish Oil (Fish Oil 1,000 mg Softgel) 1,000 Mg Capsule, 2,000 MG PO DAILY, (Reported) Entered as Reported by: ISAIAS HEAD on 09/19/16 0721 Zinc (Zinc) 50 Mg Tablet, 1 TAB PO DAILY for for 30 Days, #30 Ref 0 (Reported) Entered as Reported by: ISAIAS HEAD on 07/02/20 0958 Discontinued Medications Acai Agosto Extract (Acai Agosto) 500 Mg Capsule, 500 MG PO DAILY for , (Reported) Entered as Reported by: ISAIAS HEAD on 07/02/20 09 Aspirin (Aspirin) 81 Mg Tab.chew, 1 TAB PO DAILY for , #90 Ref 3 (Reported) Entered as Reported by: ISAIAS HEAD on 07/02/20 09 Cider Vinegar (Apple Cider Vinegar) 500 Mg Tablet, 500 MG PO DAILY for , (Reported) Entered as Reported by: ISAIAS HEAD on 07/02/20 09 FANNY HUNT APRN Jul 14, 2020 09:22 KATALINA LEDBETTER MD Jul 14, 2020 17:47
[2020-07-14] MEDS ORDERED: ASPI325T11 PO (09:26)
[2020-07-14] MEDS ORDERED: CLOP75TA PO (09:26)
--- NOTE | 2020-07-14 10:16 | CARD ---
MR#: [id number] Date of Study: 07/13/2020 Ordering Physician: KATALINA LEDBETTER, Referring Physician: KATALINA LEDBETTER, Tech: YURY CUADRA APPROVED REPORT Technologist: YURY CUADRA Nurse: Anastasia Salmeron R.N. Procedure(s) performed: Successful Orbital Atherectomy, PCI/drug eluting stent placement to Right Cor onary Artery with Temporary Transvenous pacemaker support FLOURO TIME 31.7 MINUTES DOSE 175.91 Gycm2 CONTRAST 136 CC'S VISIPAQUE MODERATE SEDATION 93 MINUTES INDICATION The indication(s) include : 64-year-old male with history of coronary disease s/p coronary artery byp ass surgery recently underwent cardiac catheterization for unstable angina and was found to have gardiner nt GANNON to diagonal branch, patent SVG to OM, occluded SVG to RCA and heavily calcified 95% stenosis involving the mid segment of [place] right coronary artery. He presented today for atherectomy/PCI/yaneth nt placement to his right coronary artery.. [facility] Clinical Frailty Scale [facility] Clinical Frailty Scale: Managing Well Heart Failure Heart Failure: No PROCEDURE NARRATIVE After explaining the risk, benefits and alternative options, informed consent was obtained from patie nt. Patient was brought to the cardiac Medical Information Specialist and his right groin was prepped and draped in the us ual fashion. 20 cc of 2% lidocaine was infiltrated into the skin and subcutaneous tissues for local anesthesia. Arterial and venous accesses were obtained in the right common femoral artery and vein r espectively and 6 and 5 Salvadorean sheaths inserted. A temporary transvenous pacemaker wire was then adv anced through the venous sheath and under fluoroscopy guidance the tip was positioned on the interven tricular septum and turned on for back up support during atherectomy. A 6 Salvadorean AL 0.75 guide catheter was then advanced through the arterial sheath and under fluoroscopy guidance the right coronary artery was engaged. Selective angiography confirmed the previously desc ribed 90 to 95% heavily calcified stenosis involving the mid segment. This was crossed with a 0.014 inch StudyMax guidewire which was then exchanged over a quick cross microcatheter to a Viper gu idewire. Multiple orbital atherectomy passes were then performed within the calcified lesion using 1 .25 Diamondback Coronary orbital atherectomy catheter. These lesions were then dilated with a 2.5 x 15 mm NC trek balloon. Subsequently, the stenosis was treated with overlapping 2.5 x 22 mm and 3.0 x 26 mm resolute [place] drug-eluting stents. Follow-up angiography showed resolution of the lesions to 0% with JEREMIAS-3 distal flow. There is moderate diffuse disease noted in the distal segment of RCA sarahy t we decided to manage medically. Patient tolerated the procedure well. The temporary TV pacer wire was removed successfully. Hemostasis was achieved using Angio-Seal and manual compression. There w ere no immediate complications. JEREMIAS Flow JEREMIAS Flow (Pre-Intervention): JEREMIAS-1 JEREMIAS Flow (Post-Intervention): JEREMIAS-3 Conclusion Successful orbital atherectomy/PCI/drug-eluting stent placement to the right coronary artery with lynette kup support from a temporary transvenous pacemaker wire. Recommendations 1. Aspirin 325 mg daily for 1 month followed by 81 mg daily 2. Plavix 75 mg daily 3. Cardiovascular risk factor modification Signed by : Katalina Ledbetter, Electronically Approved : 07/13/2020 10:45:17
[2020-07-14 10:35] VITALS: BP 112/67
--- NOTE | 2020-07-14 12:40 | NUR ---
SS following for discharge planning. SS reviewed pt chart and discussed with pt RN. Pt is from home with spouse and is currently on room air. Pt had heart cath on 07/13/2020. Discharge order on the chart for home with self care.
--- NOTE | 2020-07-14 13:00 | NUR ---
DISCHARGED PATIENT TO HOME. DISCHARGE INSTRUCTIONS GIVEN. PIV AND HEART MONITOR REMOVED. ESCORTED PATIENT OFF UNIT PER AMBULATION INTO A PRIVATE VEHICLE.
[2020-07-14] MEDS ORDERED: FLU VACC QS 2020-21(6MOS+)/PF 0.5 ML SYRINGE. VAX IM ONE (18:30)
== END 2020-07-14 13:00 | disposition home or self-care (01) ==
LOC: CCL 06:57 → INTOOBSV 10:50 → 2 NORTH 10:50
PROVIDERS: ADMIT Internal Medicine Cardiovascular Disease; ATTEND Internal Medicine Cardiovascular Disease
DX: I25.110 Atherosclerotic heart disease of native coronary artery with unstable angina pectoris (principal); I10 Essential (primary) hypertension; E78.5 Hyperlipidemia, unspecified; Z79.02 Long term (current) use of antithrombotics/antiplatelets; Z79.82 Long term (current) use of aspirin; Z79.899 Other long term (current) drug therapy; Z98.61 Coronary angioplasty status; Z95.1 Presence of aortocoronary bypass graft; Z98.890 Other specified postprocedural states; Z90.49 Acquired absence of other specified parts of digestive tract; Z95.810 Presence of automatic (implantable) cardiac defibrillator
CPT/HCPCS: 33210; 36415; 80048; 85027; 85610; 92933; 96361; 96374; 96375; 99152; 99153; C1713; C1724; C1725; C1760; C1769; C1874; C1887; C1892; C1898; G0269; G0378; G0379; J0583; J1644; J2250; J3010; J3490; Q0163; Q9967; C1771

== ENCOUNTER → 2021-10-08 | Outpatient (CLI) | payer OTHER ==
[~2021-10-08] MED LIST changes: +ASPI325T11 PO; +CLOP75TA PO; -ISOS30TA4 PO; +ISOS30TA68 PO
--- NOTE | 2021-10-08 17:53 | CARD ---
MR#: [id number] Date of Study: 10/08/2021 Ordering Physician: KATALINA ESPINOZA, Referring Physician: Cali HERNANDEZ: Hank Odell [facility] APPROVED REPORT EXAM: Two-dimensional and M-mode echocardiogram with Doppler and color Doppler. Other Information Quality : AverageHR: 55bpm Rhythm : NSR INDICATION Cardiac Disease: CAD Surgery/Intervention CABG: RISK FACTORS Family History 2D DIMENSIONS Left Atrium(2D)5.3 (1.6-4.0cm)IVSd1.2 (0.7-1.1cm) Aortic Root(2D)3.8 (2.0-3.7cm)LVDd5.5 (3.9-5.9cm) LVOT Diameter2.4 (1.8-2.4cm)PWd1.2 (0.7-1.1cm) LA Trtejl10 (18-58mL)LVDs4.1 (2.5-4.0cm) FS (%) 25.6 %SV74.9 ml LVEF(%)49.9 (>50%) Aortic Valve AoV Peak Hong.120.4cm/sAoV VTI24.9cm AO Peak GR.5.8mmHgLVOT Peak Hong.87.0cm/s LVOT VTI 18.95cmAO Mean GR.3mmHg GET (VMAX)2.17ie0RET (VTI)3.56cm2 Mitral Valve MV E Ppqusqcc819.6cm/sMV DECEL RCBM818qy MV A Kycbysbf57.2cm/sMV UKQ67xc E/A Ratio1.4MVA (PHT)5.16cm2 TDI E/Lateral E'8.7E/Medial E'15.5 Pulmonary Valve PV Peak Wtuzrbng355.3cm/sPV Peak Grad.5mmHg Tricuspid Valve TR P. Gdqgelbl692nk/sTR Peak Gr.23mmHg Pulmonary Vein S1 Llxvnmnx65.2cm/sD2 Ibntarox55.1cm/s LEFT VENTRICLE The left ventricle is normal size. There is normal left ventricular wall thickness. The left ventricu lar systolic function is normal. The ejection fraction is 55%. There is normal LV segmental wall hailee on. Transmitral Doppler flow pattern is Grade II-pseudonormal filling dynamics. No left ventricle thr ombus noted on this study. There is no ventricular septal defect visualized. There is no left ventric ular aneurysm. There is no mass noted in the left ventricle. RIGHT VENTRICLE The right ventricle is normal size. There is normal right ventricular wall thickness. The right ventr icular systolic function is normal. ATRIA The left atrium is mildly dilated. The right atrium size is normal. The interatrial septum is intact with no evidence for an atrial septal defect or patent foramen ovale as noted on 2-D or Doppler imagi ng. AORTIC VALVE The aortic valve is mildly sclerotic. Doppler and Color Flow revealed no significant aortic regurgita tion. There is no significant aortic valvular stenosis. There is no aortic valvular vegetation. MITRAL VALVE The mitral valve is normal in structure and function. There is no evidence of mitral valve prolapse. There is no mitral valve stenosis. Doppler and Color-flow revealed trace to mild mitral regurgitation . TRICUSPID VALVE The tricuspid valve is normal in structure and function. Doppler and Color Flow revealed mild tricusp id regurgitation. There is no tricuspid valve prolapse or vegetation. There is no tricuspid valve yaneth nosis. PULMONIC VALVE The pulmonary valve is normal in structure and function. Doppler and Color Flow revealed no pulmonic valvular regurgitation. There is no pulmonic valvular stenosis. GREAT VESSELS The aortic root is normal in size. The ascending aorta is normal in size. The pulmonary artery is nor mal. The IVC is normal in size and collapses >50% with inspiration. PERICARDIAL EFFUSION There is no pleural effusion. There is no evidence of significant pericardial effusion. Critical Notification Critical Value: No <Conclusion> The left ventricular systolic function is normal. The ejection fraction is 55%. There is normal LV segmental wall motion. Trace to mild mitral regurgitation. Mild tricuspid regurgitation. There is no evidence of significant pericardial effusion. Signed by : Katalina Espinoza, Electronically Approved : 10/08/2021 17:53:34
--- NOTE | 2021-10-08 18:02 | RAD ---
MR#: [id number] Date of Study: 10/08/2021 Ordering Physician: KATALINA LEDBETTER, Referring Physician: ASHLEIGH HERNANDEZ Tech: KATINA Jolley, VIRGIL (R) (N) APPROVED REPORT Test Type: Exercise Stress Nurse/Tech: ERIN HOUGH Test Indications: CAD Cardiac History: CAD, CABG, STENT, HTN- SEE EMR Medications: SEE EMR Medical History: SEE EMR Resting ECG: SB Resting Heart Rate: 53 bpm Resting Blood Pressure: 151/84mmHg Pretest Chest Pain: No chest pain Nurse/Tech Notes S1,S2, LUNGS CTA, DENIED CHEST PAIN OR SHORTNESS OF BREATH. VSS. NO COMPLAINTS. Consent: The procedure was explained to the patient in lay terms. Informed consent was witnessed. Jose eout was entered into [employer]. History and Stress Test performed by KATINA Jolley, VIRGIL (R) (N) Stress Symptoms PT TOLERATED TREADMILL TEST WELL, DENIED CHEST PAIN. PT C/O SHORTNESS OF BREATH TOWARDS THE END OF TE STING. POST EXERCISE Reason for Termination: Reached target heart rate Target HR: 132 Max HR: 143 bpm 108% of Maximum Predicted HR: 132 bpm Exercise duration: 10:02 min:sec, 4 Stage Exercise capacity: 13.4METs Max Blood Pressure: 203/94mmHg Blood Pressure response to exercise: Normal blood pressure response during stress.Abnormal blood pres sure response during stress. Heart Rate response to exercise: WNL Chest Pain: No. Arrhythmia: . FEW PVC'S NOTED DURING TESTING, PT RECOVERED WELL. INTERPRETATION Stress EKG Conclusion: Baseline EKG showed sinus rhythm. No ischemic changes at peak stress. No arr hythmias. Imaging Protocol IMAGE PROTOCOL: Rest Tc-99m/stress Tc-99m 1 day Rest: Stress: Viability: Radiopharm.Tc99m OhpjwivfcGs75j Sestamibi Dose10.3mCi 31mCi Img Date 10/08/2021 10/08/2021 Inj-Img Hhps20skn. 75min. Rest Admin Site:IV - Left AntecubitalAdministrator:Tatyana Garces, RT (R)(N) Stress Admin Site: IV - Left AntecubitalAdministrator: KATINA Jolley, ARRT (R)(N) STRESS DATA End Diast. Vol.127.0mlLVEDV index BSA57.0ml End Syst. Vol.53.0mlLVESV index BSA24.0ml Myocardial Pwes973.0gEject. Hkrhnufy13.0% Stress Scores Regional WT0.00Summed WT4.00 Regional WM0.00Summed WM12.00 Study quality was good. Left Ventricular size was Normal at Rest and Stress. Lung uptake was . Left Ventricular ejection fraction is 56%. The rest and stress images show normal perfusion, normal contraction and thickening. LV Perf. Quant 17 Seg. SSS3.00 17 Seg. SRS1.00 17 Seg. SDS3.00 Stress Defect Extent (% LAD)2.50Rest Defect Extent (% LAD)0.00Rev. Defect Extent (% LAD)2.50 Stress Defect Extent (% LCX) 5.00Rest Defect Extent (% LCX)6.30Rev. Defect Extent (% LCX)5.00 Stress Defect Extent (% RCA)0.00Rest Defect Extent (% RCA)0.00Rev. Defect Extent (% RCA)0.00 Stress Defect Extent (% JOSE)1.70Rest Defect Extent (% JOSE)1.10Rev. Defect Extent (% JOSE)1.70 Conclusion 1. Treadmill exercise cardioisotope stress test did not show any evidence of ischemia or infarct. 2. Normal left ventricular systolic function with ejection fraction calculated at 56%. 3. Low risk for cardiac events. Signed by : Katalina Ledbetter, Electronically Approved : 10/08/2021 18:01:51
== END ==
LOC: ECHO 07:54
PROVIDERS: ATTEND Internal Medicine Cardiovascular Disease
DX: I08.3 Combined rheumatic disorders of mitral, aortic and tricuspid valves (principal); I25.810 Atherosclerosis of coronary artery bypass graft(s) without angina pectoris
CPT/HCPCS: 78452; 93017; 93306; A9500; C8929